=== PATIENT | female | born 1960 | race Caucasian/White ===

== ENCOUNTER 2019-03-12 13:48 | Outpatient (CLI) | payer BC ==
--- NOTE | 2019-03-12 14:21 | RAD ---
2 VIEWS CHEST: Date: 03/12/19 COMPARISON: 02/06/19. HISTORY: Dyspnea. FINDINGS: Two views of the chest show normal sized cardiomediastinal silhouette. There is no evidence of consol idation, mass, or pleural effusion. The bones are unremarkable. IMPRESSION: No evidence of acute cardiopulmonary disease. POS: [facility]
== END 2019-03-12 13:49 | disposition home or self-care (01) ==
LOC: RAD 13:48
PROVIDERS: ATTEND Internal Medicine Pulmonary Disease
DX: R06.00 Dyspnea, unspecified (principal)
CPT/HCPCS: 71046

== ENCOUNTER 2019-03-14 13:44 | Outpatient (CLI) | payer BC ==
[~2019-03-14 13:44] MED LIST: Iopamidol 370 76% 100 ML VIAL ONE
--- NOTE | 2019-03-14 14:45 | CT ---
CT ANGIOGRAM THORAX WITH IV CONTRAST AND 3-D RECONSTRUCTIONS CLINICAL INDICATION: Shortness of breath and chest pain on and off. COMPARISON: None FINDINGS: Pulmonary arteries: No filling defects are seen in the pulmonary arteries to suggest a pulmonary embo makayla. Aorta: The aorta is normal in caliber without evidence of an aortic dissection. Lungs: There is atelectasis involving the right middle lobe. The lungs are otherwise clear. No pulmon bryn nodule or consolidation is seen. There is no evidence of a pleural effusion. Mediastinum: There is no evidence of lymphadenopathy. Thyroid gland: Visualized thyroid gland has a normal CT appearance. Osseous structures: Mild degenerative changes are seen in the thoracic spine. Chest wall: No abnormality visualized. Upper abdomen: There are are a few subcentimeter too small to characterize hypodense lesions seen in the anterior segment of the right hepatic lobe. IMPRESSION: 1. No CT evidence of a pulmonary embolus. 2. The lungs are clear. There is no pleural effusion or pneumothorax. 3. Too small to characterize subcentimeter hypodense lesions right hepatic lobe.
== END 2019-03-14 13:45 | disposition home or self-care (01) ==
LOC: CT 13:44
PROVIDERS: ATTEND Family Medicine
DX: R06.02 Shortness of breath (principal); K76.9 Liver disease, unspecified
CPT/HCPCS: 71275; Q9967